=== PATIENT | male | born 1955 | race Caucasian/White ===

== ENCOUNTER → 2017-03-25 | Outpatient (CLI) | payer OTHER | LOC: BMCIMAGING 16:14 | PROVIDERS: ATTEND Family Medicine | DX: M25.552 Pain in left hip (principal) ==

== ENCOUNTER → 2017-07-03 | Outpatient (CLI) | payer OTHER | LOC: BMCIMAGING 10:42 | PROVIDERS: ATTEND Nurse Practitioner Family | DX: R05 Cough (principal) ==

== ENCOUNTER → 2017-08-06 | Outpatient (CLI) | payer OTHER | LOC: FIMAGING 13:28 | PROVIDERS: ATTEND Nurse Practitioner Family | DX: R05 Cough (principal) ==

== ENCOUNTER → 2017-08-14 | Outpatient (CLI) | payer OTHER | LOC: FIMAGING 08:20 | PROVIDERS: ATTEND Allergy & Immunology Allergy | DX: K21.9 Gastro-esophageal reflux disease without esophagitis (principal); J47.9 Bronchiectasis, uncomplicated ==

== ENCOUNTER → 2017-10-29 | Outpatient (CLI) | payer OTHER | LOC: FIMAGING 10:37 | PROVIDERS: ATTEND Allergy & Immunology Allergy | DX: J32.9 Chronic sinusitis, unspecified (principal); J33.8 Other polyp of sinus ==

== ENCOUNTER → 2017-12-16 | Outpatient (CLI) | payer OTHER | LOC: BMCIMAGING 13:27 | PROVIDERS: ATTEND Emergency Medicine | DX: M24.012 Loose body in left shoulder (principal) ==

== ENCOUNTER → 2018-03-04 | Outpatient (CLI) | payer OTHER ==
[~2018-03-04] MED LIST: IOPAMIDOL (ISOVUE-300) 100 ML BTL ONE
== END ==
LOC: CIMAGING 11:09
PROVIDERS: ATTEND Urology
DX: N42.9 Disorder of prostate, unspecified (principal); N32.9 Bladder disorder, unspecified
CPT/HCPCS: 72193-PO; Q9967

== ENCOUNTER → 2018-03-11 | Outpatient (CLI) | payer OTHER | LOC: FIMAGING 15:48 | PROVIDERS: ATTEND Orthopaedic Surgery | DX: M79.604 Pain in right leg (principal); M79.89 Other specified soft tissue disorders ==

== ENCOUNTER → 2018-05-05 | Outpatient (CLI) | payer OTHER ==
[~2018-05-05] MED LIST changes: +GADOBUTROL 10 ML VIAL IVP ONE; -IOPAMIDOL (ISOVUE-300) 100 ML BTL ONE
== END ==
LOC: FIMAGING 12:15
PROVIDERS: ATTEND Urology
DX: R97.20 Elevated prostate specific antigen [PSA] (principal); N40.0 Benign prostatic hyperplasia without lower urinary tract symptoms; N32.89 Other specified disorders of bladder
CPT/HCPCS: A9585

== ENCOUNTER → 2018-09-18 | Outpatient (CLI) | payer OTHER | LOC: BMCIMAGING 14:41 | PROVIDERS: ATTEND Internal Medicine | DX: Z13.820 Encounter for screening for osteoporosis (principal); M81.0 Age-related osteoporosis without current pathological fracture ==

== ENCOUNTER → 2018-09-30 | Outpatient (CLI) | payer OTHER | LOC: BMCIMAGING 07:43 | PROVIDERS: ATTEND Urology | DX: N40.1 Benign prostatic hyperplasia with lower urinary tract symptoms (principal) ==